=== PATIENT | male | born 1975 | race Caucasian/White ===

== ENCOUNTER 2018-11-20 04:18 | Observation (INO) | payer OTHER, SELFPAY ==
[2018-11-20] VITALS (13 sets, daily range): BP systolic 117–159; BP diastolic 66–93; PULSE 51–74; RESP 15–18; TEMP 36.1–37; O2SAT 95–98; BMI 284.2; BMI 28.3; BMI 28.2
--- NOTE | 2018-11-20 04:27 | CT_ITS ---
STUDY: CT ABDOMEN AND PELVIS WITHOUT CONTRAST REASON FOR EXAM: Male, 43 years old. Diffuse abdominal pain, constipation RADIATION DOSAGE (If Supplied By Facility): CTDIvol = ( 10.31 ) mGy, DLP = ( 525.35 ) mGycm TECHNIQUE: Transaxial images were obtained from the dome of the diaphragm to the symphysis pubis without oral contrast, and without intravenous contrast. Sagittal and coronal images were reconstructed. Individualized dose optimization techniques were used for this CT. COMPARISON: None. FINDINGS: The visualized lung bases are unremarkable. The visualized portions of the heart are within normal limits. Normal liver. Normal gallbladder and extrahepatic biliary system. There is a benign calcified granuloma of the spleen. Normal pancreas. Normal bilateral adrenal glands. Normal right kidney. Normal left kidney. Normal visualized stomach. Normal small intestine. There are multiple colonic diverticula consistent with diverticulosis. There is non-visualization of the appendix. Normal abdominal aorta. Normal inferior vena cava. Normal retroperitoneum. Normal urinary bladder. Vasectomy. Normal abdominal wall. Normal osseous structures. CT/Abdomen/Pelvis without Cont IMPRESSION: No evidence of acute intestinal pathology or acute obstructive uropathy. Electronically Signed: Lukas Perdomo MD at 5:57 EDT Tel , Service support ,
[2018-11-20] MEDS: Morphine 4 MG/ML Syringe IV ×2 (04:33→06:59)
[2018-11-20] MEDS: Ondansetron 4 MG/2 ML Vial IV (04:34)
[2018-11-20] MEDS: 0.9% Normal Saline 1,000 ML 125 ML IV (04:34)
[2018-11-20 04:36] LABS: Absolute Lymphocyte Count 2.37 X10^3/ul (0.83-4.51); Absolute Neutrophil Count 10.8 X10^3/uL (2.0-7.7); Basophil# 0.02 X10^3/uL; Basophil% 0.1 % (0-1); Eosinophils% 0.7 % (0-5); Hematocrit 43.8 % (40-54); Hemoglobin 15.2 g/dl (13.0-16.5); Lymphocyte # 2.37 X10^3/ul (4.0); Mean Corp Hgb Conc 34.7 g/gl (32-36); Mean Corpuscular Hgb 31.3 pg (27.0-32.0); Mean Corpuscular Volume 90.1 fL (80-94); Mean Platelet Vol. 9.3 fl (6.2-12.0); Monocyte# 1.49 X10^3/uL; Neutrophil # 10.84 X10^3/uL (2.7-7.7); Platelet Count 262 K/mm3 (150-450); RBC Distribution Width CV 12.7 % (11.6-14.6); RBC Distribution Width SD 41.1 fl (35.1-43.9); Red Blood Count 4.86 M/mm3 (4.6-6.2); White Blood Count 14.9 K/mm3 (4.4-11.0)
[2018-11-20 04:38] LABS: POSITIVE COUNT NO; POSITIVE DIFFERENTIAL NO; POSITIVE MORPHOLOGY NO
[2018-11-20 04:45] LABS: AST(SGOT) 21 U/L (15-37); Alanine Aminotransfer ALT/SGPT 29 U/L (16-61); Albumin, Serum 4.2 g/dL (3.2-5.0); Alkaline Phosphatase 69 U/L (45-117); Anion Gap 12 (5-15); BUN 13 mg/dL (7-18); BUN/Creat Ratio 10.6 RATIO (10-20); Calcium,Total 9.4 mg/dL (8.5-10.1); Chloride 105 mmol/L (98-107); Creatinine, Serum 1.23 mg/dL (0.70-1.30); EST Glomerular Filtration Rate 68 mL/min (>60); Est Glom Filt Rate - Afr Amer 82 mL/min (>60); Estimated Creatinine Clearance 78.31 ml/min; Globulin 4.3 g/dL (2.2-4.2); Glucose 120 mg/dL (74-106); Potassium 3.7 mmol/L (3.5-5.1); Protein, Total 8.5 g/dL (6.4-8.2); Sodium Level 142 mmol/L (136-145)
[2018-11-20 05:06] LABS: Lactic Acid 1.2 mmol/L (0.4-2.0)
[2018-11-20 05:17] LABS: Bacteria 0 SEEN /hpf (None Seen); Mucous, Urine 0 SEEN /hpf (<or=2+); Squamous Epithelial Cells - UA 0 SEEN /hpf (0-5)
[2018-11-20 05:20] LABS: Color, Urine Yellow (Yellow); Glucose, Dipstick Normal (Normal); Ketone-Dipstick 15 mg/dl (Negative); Leukocyte Esterase-Dipstick Negative /ul (Negative); Nitrite-Dipstick Negative (Negative); Occult Blood-Urine 25 /ul (Negative); Protein-Dipstick 15 mg/dl (Negative); Urine Bilirubin Dipstick Negative (Negative); Urine Clarity Sl. Cloudy (Clear); Urine Urobilinogen Normal (Normal)
[2018-11-20 05:43] LABS: Red Blood Cells-Urine 5-10 SEEN /hpf (0-5); White Blood Cells 0-5 SEEN /hpf (0-5)
--- NOTE | 2018-11-20 06:04 | CT_ITS ---
STUDY: CT ABDOMEN AND PELVIS WITH CONTRAST REASON FOR EXAM: Male, 43 years old. Pain and no bowel movement for 5 days RADIATION DOSAGE (If Supplied By Facility): CTDIvol = ( 13.22 ) mGy, DLP = ( 679.87 ) mGycm TECHNIQUE: Transaxial images were obtained from the dome of the diaphragm to the symphysis pubis without oral contrast. Isovue 300 100 IV/Oral was administered. Sagittal and coronal images were reconstructed. Individualized dose optimization techniques were used for this CT. COMPARISON: November 20, 2018 4:[address] scan abdomen and pelvis FINDINGS: There is minimal lower lobe atelectasis. The visualized portions of the heart are within normal limits. Normal liver. Normal gallbladder and extrahepatic biliary system. Normal spleen. Normal pancreas. Normal bilateral adrenal glands. Normal right kidney. Normal left kidney. There is a small hiatal hernia. Contrast is present within the mid small bowel at the time of this study. There are persistent fluid filled distended loops of proximal mid and distal colon to the level of the distal descending colon. There are multiple diverticula present without diverticulitis. The bowel within the distal descending colon and sigmoid is redundant and tortuous. There is a minimal amount of stool within the distal descending colon and rectum similar to the earlier studies today. There is non-visualization of the appendix. Normal abdominal aorta. Normal inferior vena cava. There are a few nonspecific subcentimeter retroperitoneal lymph nodes. The bladder is distended.There are prostatic calcifications. Patient had a vasectomy There is a trace fatty umbilical hernia. There is spondylosis in the lower thoracic spine. CT/Abdomen/Pelvis WITH Contrast IMPRESSION: There is a distended fluid filled appearance of most of the colon. There is a decompressed redundant appearing partially stool-filled distal colon. There are a few diverticula present without evidence of diverticulitis. Could consideration for KUB serial delayed images as the contrast does not reach the large bowel at the time of the study. This may be helpful to further clarify the decompressed distal colon. The differential for the air-fluid levels within the colon, include the possibility of laxative use, in combination with possible poor motility or potentially a distal nonvisualized narrowing or stricture. Air-fluid levels in the colon can be demonstrated in gastroenteritis in patients that will develop diarrhea. Hepatic steatosis. Electronically Signed: Migdalia Pitt MD at 8:52 EDT Tel , Service support ,
--- NOTE | 2018-11-20 06:26 | ED.VISSUMM ---
- ER Visit Summary Date of Service: 11/20/18 Chief Complaint: [Abdominal pain] History of Present Illness: The patient is a 43 M [presents the emergency department complaint of lower abdominal pain is been going on for about 2 days. Patient initially started with some discomfort in his low back which eventually resolved. Patient also has not had a bowel movement in 4 days. Patient denies any fever. He denies any nausea or vomiting. He denies any blood in his stool or black tarry stools. Patient has no medical history. He denies urinary symptoms.] Physical Examination: [HEENT-PERRLA, EOMI. Cranial nerves II through XII grossly intact. TMs clear. Mucous membranes moist. No adenopathy. Cardiovascular-regular rate and rhythm without murmur or ectopy Lungs-clear to auscultation, chest wall stable without crepitus or subcu emphysema Abdomen-normoactive bowel sounds, soft. Patient has tenderness palpation over right lower quadrant with some guarding. There is no rebound, rigidity, or perineal signs. Extremities-intact ?4, normal range of motion, normal pulses, atraumatic] Test Results: [CBC with differential showed an elevated white count of 14.9, hemoglobin 15, hematocrit 44.8, platelets 262. Chemistries unremarkable. LFTs were normal. Lactate is normal 1.2. CT scan of the abdomen pelvis without contrast initially was obtained which did not show anything acute however there was nonvisualization of the appendix.] Emergency Department Course and Treatment: [Patient was medicated with morphine and Zofran. Patient continues to have tenderness over the right lower quadrant with guarding. Given the elevated white count and continued tenderness over the right lower quadrant and nonvisualization of the appendix it was decided to obtain a CT scan of the abdomen pelvis with IV contrast and p.o. contrast.] Treatment Plan: [Care of patient turned over the morning physician awaiting CT results and final disposition] Disposition: [Pending] Impression: Abdominal pain Constipation [] This note was generated with [employer] dictation software. It may contain incorrect words, spelling, and punctuation that were not noted in review of the chart prior to signing ED Disposition - Plan for ED Patient: Referrals: Joseph Cabrales III, MD [Primary Care Provider] -
--- NOTE | 2018-11-20 10:12 | PCM.HP.BLA ---
History and Physical Date of Admission: 11/20/18 Chief Complaint: abdominal pain History of Present Illness: 43 y/o otherwise healthy WM presents with abdominal pain in the right lower quadrant. Initially began on Thursday morning with low back pain, but then radiated anteriorly to the right lower quadrant. On , felt constipated, last had normal bowel movement on Thursday. Tried many over the counter remedies - prune juice, dulcolax, etc. with no improvement. Pain waxes and wanes and notes that it is spasmodic, patient is sometimes doubled over in pain. Presented early this morning to the ED. Thought initially to be kidney stone - non contrast CT scan revealed no abnormalities. Obtained contrasted CT scan - no acute process noted. Diverticula noted, redundant colon noted, minimal stool in right colon, no appendix seen WBC 14.9K with left shift of differential Has history of constipation, but never had this type of abdominal pain with constipation. Past Medical History: denies major medical illnesses Past Surgical History: right shoulder surgery vasectomy Past Injuries: denies head injuries, denies history of fractures Medications: flonase occasional fish oil mvi Allergies: Has no known drug allergies Social history: TOB use denies lives with family Review of Systems: General - denies fevers Cardiovascular denies chest pain, denies history of heart attack Pulmonary denies shortness of breath, denies coughing up blood Gastrointestinal as per HPI, denies blood in stools, has constipation Neurological denies numbness/weakness of extremities, denies seizures, denies history of stroke Genitourinary denies burning with urination, denies blood in urine Hematological denies spontaneous/prolonged bleeding Skin denies open non healing wounds Musculoskeletal denies history of fractures, had right shoulder surgery Endocrine denies diabetes Psychological denies hallucinations Physical examination: Vital signs Temp 97.5F HR 65 BP 159/93 RR 18 General WD/WN WM in no apparent distress, alert and oriented, not septic appearing HEENT Normocephalic. EOM intact with sclera clear and no icterus noted. Neck is supple with no jugular venous distention noted. Trachea is midline. Lungs no labored breathing noted, such as retractions. No cough heard. Heart regular. Abdomen soft but tender in the right lower quadrant, no rebound or Rovsing's sign. patient states that pain waxes and wanes, had been 10 out of 10 on scale of 1-10 with 10 being the worst pain Extremities no pitting edema noted. Genitourinary/Rectal deferred Skin normal skin integrity. Neurological no focal deficits noted Psychological normal affect, patient is calm and appropriate Impression: right lower quadrant abdominal pain leukocytosis Discussion/Plan: I have discussed the above with the patient and his who is present with him The patient clinically has signs/symptoms of acute appendicitis - with right lower quadrant point tenderness at McBurney's point and leukocytosis. I have told them that CT scan results are not perfect, so despite having no abnormalities seen on CT scan (albeit the appendix is not see) - the patient may still have appendicitis. I have offered laparscopic appendectomy. I have explained the procedure to the patient. I have counseled the patient as to the risks of the procedure, including but not limited to: infection, bleeding, injury to any blood vessels/nerves, scar tissue, injury to any intrabdominal organs, injury to kidney/ureters, injury to bowel/bladder, intraabdominal abscess/bleeding, hernias at incisional sites, wound infections, possible open procedure, complications of anesthesia, postoperative pneumonia/cardiac problems/blood clots etc. the patient understands. He wishes to proceed. I have answered all questions to the patient?s satisfaction and the patient has no further questions.
--- NOTE | 2018-11-20 10:13 | EKG12_ITS ---
Test Reason : PRE OP Blood Pressure : / mmHG Vent. Rate : 052 BPM Atrial Rate : 052 BPM P-R Int : 206 ms QRS Dur : 108 ms QT Int : 434 ms P-R-T Axes : 055 012 012 degrees QTc Int : 403 ms Sinus bradycardia Otherwise normal ECG Confirmed by SANDRA SALMON, MOSES ([id number]), sports editor JILLIAN LOPEZ ([id number]) on 11/22/2018 11:22:55 AM Referred By: ALONDRA Confirmed By:MOSES FLORES MD
--- NOTE | 2018-11-20 11:00 | APP_PTH ---
PATIENT: CAYDEN HUI Jr. LOC: MS3 U#:[id number] AGE/SX: 43/M [place] [facility] [place]: Dr. Gloria Smith MD : 1975 BED: 1 DIS: 11/21/2018 SPEC #: [id number] RECD: 11/22/18 07:25 STATUS: BUSHRA RE #: [id number] WILLIAM: 11/20/18 11:[address]: Gloria Smith DEPT: SURGICAL PATHOLOGY RECD BY: Ronald Reese ENTERED: 11/22/18 12:56 SP TYPE: APPENDIX OTHR DR: Dr. Joseph Cabrales III, MD Tissues: Appendix, NOS Procedures: Surgery Specimen Level III HEADER OPERATION: Laparoscopic appendectomy, lysis of adhesions PRE-OP DIAGNOSIS: Acute appendicitis; elevated WBC; right lower quadrant pain TISSUE SUBMITTED: Appendix MICROSCOPIC DIAGNOSIS Appendix, appendectomy: Fibrofatty obliteration of lumen. No evidence of appendicitis. AM:nilson 11/23/18 MICROSCOPIC DESCRIPTION Slides are reviewed. GROSS DESCRIPTION Received is one container labeled with the patient's name and designated appendix. The specimen consists of an appendix measuring 4.5 cm in length and 0.4 cm in average diameter. The attached periappendiceal adipose tissue measures up to 1.5 cm in width. The serosa is unremarkable. No obvious perforation is identified. The lumen is pinpoint. Sections of the periappendiceal adipose tissue do not reveal any obviously enlarged lymph node. The entire appendix is submitted in one cassette. / SJ:nilson 11/22/18 TC:5 CPT: 65748
[2018-11-20] MEDS: Bupiv/Epi 0.25% 30 ML Vial (11:21)
--- NOTE | 2018-11-20 12:13 | OP.PCM_ITS ---
Report of Operation Date of Procedure: 11/20/18 Pre-Operative Diagnosis: right lower quadrant abdominal pain, leukocytosis Post-Operative Diagnosis: right lower quadrant abdominal pain, elevated WBC, adhesive band Surgery/Procedure Performed:: laparoscopic appendectomy, lysis of adhesions Description of Surgical Findings:: adhesive band across mid right colon that appeared to kink the colon, small appendix Type of Anesthesia:: General Anesthesiologist: Shannon Dow Specimen's removed: appendix Estimated Blood Loss (mL): < 10 ml Fluids Replaced: 1000 ml RL Description of Procedure: After informed consent was obtained, the patient was brought into the operating room. Appropriate time out protocol was followed. He was then placed in the supine position on the operating table. The patient was then placed under general anesthesia. The patient?s abdomen was then prepped with a sterile surgical skin preparation and sterile surgical drapes were placed. The cynthia- umbilical skin fold was grasped with penetrating clamps and the skin and subcutaneous tissues were infiltrated with 0.25% marcaine with epinephrine. A skin incision was then made. A Veress needle was then inserted into the intraabdominal cavity and checked to be in the proper position with a normal saline drop test. A CO2 pneumoperitoneum was then created. Once this was achieved, the Veress needle was removed and a 5 mm trocar was placed in its stead. A 5 mm laparoscope was then inserted into the trocar. There was no evidence of injury to any internal organs from placement of the Veress needle or the trocar. Under direct visualization, a 12mm suprapubic trocar and a 5mm left lower quadrant trocar was then placed into the intraabdominal cavity. The skin and subcutaneous tissues at these sites were first infiltrated with 0.25% marcaine with epinephrine. Careful examination of the intraabdominal contents was then done. There was an adhesive band of omental tissue that appeared to be kinking the mid right colon, as the cecum and proximal colon to this kink was dilated. Thus this adhesion was taken down by using the Harmonic scalpel. Attention was then directed to the right lower quadrant. The appendix was visualized. It was very small in caliber. The mesentery of the appendix was taken down by cauterizing the tissue from the free edge to the base of the appendix with the harmonic scalpel. Once the base of the appendix was freed of surrounding tissues, then the linear gastrointestinal stapling device was brought into the abdominal cavity via the 12mm port and placed across the base of the appendix. The stapling device was fired, thus stapling across the base of the appendix and transecting it simultaneously. The appendix was then placed in an Endobag and this was brought out through the suprapubic trocar. The appendix was then forwarded to Pathology for analysis. The appendiceal stump was carefully examined. There was no evidence of any active bleeding or fecal leakage. The surrounding tissues were also examined and there was no evidence of any active bleeding or fecal/bile leakage. The intraabdominal cavity was examined and there was no evidence of further inflammation or tissue abnormality. There was no evidence of any peritoneal fluid. The CO2 pneumoperitoneum was released and all trocars were removed intact. The suprapubic fascia was reapproximated with a figure-of-8 vicryl suture. All skin incisions were reapproximated with monocryl suture. Cavilon and steristrips were applied to reinforce skin closure and proper sterile dressings were placed. The patient was then extubated and brought to the Recovery Room in stable condition. - Complications none noted - Admit VTE Documentation VTE Present on Admission: Yes VTE Mechan Device Prophylaxis: SCD's
[2018-11-20] MEDS: Ibuprofen 600 MG Tablet PO ×2 (17:22→23:10)
[2018-11-20] MEDS: Lactated Ringers 1,000 ML 125 ML IV (20:33)
[2018-11-20] MEDS: Bisacodyl 5 MG Tablet PO (21:44)
[2018-11-21 02:20] VITALS: BP 143/73; PULSE 74; RESP 18; TEMP 36.6; O2SAT 97
[2018-11-21] MEDS: Lactated Ringers 1,000 ML 125 ML IV (04:15)
[2018-11-21 09:10] VITALS: BP 135/91; PULSE 57; RESP 16; TEMP 36.8; O2SAT 98
[2018-11-21] MEDS: Bisacodyl 5 MG Tablet PO (10:12)
[2018-11-21] MEDS: Ibuprofen 600 MG Tablet PO (10:14)
--- NOTE | 2018-11-21 10:37 | PCM.PN.SRG ---
Subjective: patient wanted to stay overnight because he hadn't had a bowel movement and feels constipated does feel better after surgery - Physical Exam General: Alert, Oriented x3 Oral: Moist Mucosa Neck: Supple Lungs: Clear to auscultation Abdomen: Soft, - - dressings intact, minimal seepage noted Vital Signs Temp Pulse Resp BP Pulse Ox 98.2 F 57 L 16 135/91 H 98 11/21/18 09:10 11/21/18 09:10 11/21/18 09:10 11/21/18 09:10 11/21/18 09:10 Oxygen Delivery Method Room Air Weight: 89.3 kg Body Mass Index (BMI) 28.2 Intake and Output for Last 24 Hours 11/19/18 11/20/18 11/21/18 23:59 23:59 23:59 Intake Total 3274 / 3274 908 / 908 Output Total 600 / 600 725 / 725 Balance 2674 / 2674 183 / 183 Medical Necessity - Tobacco Use Smoking Status: Never smoker Assessment/Plan status post laparoscopic appendectomy Plan: d/c to home
--- NOTE | 2018-11-21 10:38 | PCM.DC.APPY ---
Discharge Diet: No Restrictions - avoid carbonated beverages for a couple of days, drink plenty of fluids Discharge Activity: Return to Normal Activity, May not drive while taking narcotic pain medications. Lifting Restrictions: no lifting/pulling/pushing greater than 20 pounds for two weeks Call your doctor if your incision/area has: Continuous Slow Oozing, Foul Smelling Discharge Call your doctor if you observe: Fever of 101 or Higher Additional Dressing/Incision Instructions:: Leave dressings in place. May get wet in shower. Do not soak - no tub baths/swimming Medications to take at Discharge Amoxicillin [Amoxil] 500 mg PO BID 11/20/18 Hydrocodone/Acetaminophen [Orleans 5-325 Tablet] 1 ea PO Q8 PRN 5 Days #15 tab 11/20/18 Multivitamin with Minerals [Multiple Vitamin] 1 each PO DAILY 11/20/18 [id number]/Sod Sulf,Bicarb,Cl/KCl [Peg 3350 Electrolyte Soln] 4,000 ml PO PRN PRN #1 soln.recon 11/21/18 Allergies/Adverse Reactions: Allergies No Known Allergies Allergy (Verified 11/20/18 04:23) The following prescriptions were given: Hydrocodone/Acetaminophen [Orleans 5-325 Tablet] 1 ea PO Q8 PRN 5 Days #15 tab PRN Reason: Mod-Severe Pain (4-10/10) [id number]/Sod Sulf,Bicarb,Cl/KCl [Peg 3350 Electrolyte Soln] 4,000 ml PO PRN PRN #1 soln.recon PRN Reason: Constipation Primary Care Physician: Joseph Cabrales III, MD [Primary Care Provider] - Test Results: Test results from this visit will be discussed in further detail at your follow-up appointment, if applicable. Please Follow Up With: Gloria Smith MD - When: to be seen on Nov 26, please call for time, thank you
== END 2018-11-21 12:05 | disposition home or self-care (01) ==
LOC: ED 07:18 → SDC 10:20 → AC 10:21 → SDC 13:11 → MS3 20:15
PROVIDERS: Emergency Medicine; Admitting Provider Surgery; Emergency Provider Emergency Medicine; Family Provider Family Medicine; PCP Family Medicine; Visit Provider Surgery
PROC: 0DTJ4ZZ Resection of Appendix, Percutaneous Endoscopic Approach (ICD-10-PCS; CPT 44970; principal; 2018-11-20 11:00)
DX: R10.31 Right lower quadrant pain (principal); D72.829 Elevated white blood cell count, unspecified; K66.0 Peritoneal adhesions (postprocedural) (postinfection); K59.00 Constipation, unspecified; R00.1 Bradycardia, unspecified
CPT/HCPCS: 00840; 44970; 74176; 74177; 80053; 81001; 83605; 85025; 88304; 93005; 96361; 96374; 96375; 96376; 99218; 99285; J7120; Q9967; A4216; G0378; J2405

== ENCOUNTER → 2019-03-02 | Outpatient (CLI) | payer OTHER, SELFPAY ==
[2018-11-20 13:18] VITALS: BMI 28.2
--- NOTE | 2019-03-02 07:49 | CT_ITS ---
HISTORY: HEARING LOSS EXAMINATION: CT IAC/PF/Orbit/Sella W/O Contrast TECHNIQUE:Routine noncontrast CT protocol was performed of the internal auditory canals and temporal bones. 2-D reformats were performed by the technologist. A radiation dose optimization technique was used for this scan. IV Contrast dosage and agent: None. COMPARISON: None FINDINGS: RIGHT SIDE: SUPERFICIAL SOFT TISSUES: Trace edema within the subcutaneous fat of the face and about the years MASTOID AIR CELLS: Well aerated, unremarkable. EXTERNAL AUDITORY CANALS AND MIDDLE EAR CAVITIES: Well aerated. INTERNAL AUDITORY CANALS: Unremarkable bilateral internal auditory canals. No intracanalicular schwannoma. INNER EAR: Unremarkable cochlea, vestibule and semicircular canals. TEMPORAL BONES: No fractures. LEFT SIDE: SUPERFICIAL SOFT TISSUES: Unremarkable. MASTOID AIR CELLS: Well aerated, unremarkable. EXTERNAL AUDITORY CANALS AND MIDDLE EAR CAVITIES: Well aerated. INTERNAL AUDITORY CANALS: Unremarkable bilateral internal auditory canals. No intracanalicular schwannoma. INNER EAR: Unremarkable cochlea, vestibule and semicircular canals. TEMPORAL BONES: No fractures. VISUALIZED BRAIN AND POSTERIOR FOSSA: Cerebello-pontine angles are unremarkable. CT/Orb Sella Post Fossa Ear w/o IMPRESSION: Negative CT of the internal auditory canals and temporal bones. Individualized dose optimization techniques were used for this CT. at 0033 Reported and signed by: Nikunj Lance MD Electronically Signed: Nikunj Lance MD at 0:32 EDT Tel , Service support ,
== END | disposition home or self-care (01) ==
PROVIDERS: Family Provider Family Medicine; PCP Family Medicine; Referring Provider Otolaryngology Otolaryngology/Facial Plastic Surgery; Visit Provider Otolaryngology Otolaryngology/Facial Plastic Surgery
DX: H90.2 Conductive hearing loss, unspecified (principal)
CPT/HCPCS: 70480

== ENCOUNTER → 2023-10-09 | Outpatient (CLI) | payer OTHER, SELFPAY ==
--- NOTE | 2023-10-09 12:09 | CT_ITS ---
STUDY: CT RIGHT SHOULDER REASON FOR EXAM: Male, 48 years old. IMPINGEMENT SYNDROME RIGHT SHOULDER RADIATION DOSAGE (If Supplied By Facility): CTDIvol = ( 26.70 ) mGy, DLP = ( 645.47 ) mGycm TECHNIQUE: The patient was scanned in a multi detector CT scanner. High resolution transaxial imaging was performed with intra-articular administration of intravenous contrast material. Sagittal and coronal images were reconstructed. Individualized dose optimization techniques were used for this CT. COMPARISON: None. FINDINGS: The patient is status post right shoulder hemiarthroplasty with replacement of the humeral head. Contrast is seen within the joint. There is evidence of a impingement of the supraspinatus muscle tendon. Normal coracoid process. Normal visualized lateral clavicle. Normal acromioclavicular articulation. There is a Type II morphology (curved), with a neutral orientation. Normal visualized muscles and soft tissue structures. CT/Extremity Upper without Contra IMPRESSION: Findings suggestive of mild degree of impingement of the supraspinatus muscle tendon. Electronically Signed: López Falcon MD at 14:01 EST ,
--- NOTE | 2023-10-09 12:45 | RAD_ITS ---
STUDY: X-RAY - RIGHT SHOULDER REASON FOR EXAM: Male, 48 years old. POST ARTHROGRAM TECHNIQUE: 2 view(s) of the shoulder. COMPARISON: None. FINDINGS: The patient is status post hemiarthroplasty of the humeral head. Contrast is seen within the joint space. RAD/Shoulder min 2 Views IMPRESSION: Contrast is seen within the joint space for CT arthrogram study. Electronically Signed: López Falcon MD at 10:24 EST ,
[2023-10-09] MEDS: Lidocaine 2% (5ml sdv) 5 ML VIAL.MPF INFILT (12:50)
--- NOTE | 2023-10-09 13:13 | PCM.OP.PRO ---
Procedure Report Date of Procedure: 10/09/23 Assessment & Plan Assessment/Plan (1) Impingement syndrome of right shoulder: PLAN: PROCEDURE: Arthrogram-right shoulder ORDERING PROVIDER: Dr. Novak INDICATION: Male, 48 years old. Right shoulder pain. PROVIDER: Sarah Wells APRN-[employer] CONSENT: The procedure as well as the benefits and possible complications including bleeding and infection were explained to the patient. Informed consent was obtained. TECHNIQUE: The patient was positioned supine. The overlying skin was prepped and draped in the usual sterile fashion. Following injection of local anesthetic with 2% lidocaine and under direct fluoroscopic guidance, a 22-gauge spinal needle was placed into the right glenohumeral space. 2 cc of Isovue 300 was injected for confirmation. Following this, 10 cc of arthrogram contrast (gadoterate, iopamidol, lidocaine, and epinephrine), compounded by pharmacy, was injected. All elements of maximal sterile barrier technique followed. Patient tolerated procedure well. IMPRESSION: Successful fluoroscopic guided right shoulder arthrogram. Procedures Radiology Radiology Xray Procedures: [id number] Arthrogram Shoulder
== END | disposition home or self-care (01) ==
PROVIDERS: PCP Registered Nurse
DX: M75.41 Impingement syndrome of right shoulder (principal)
CPT/HCPCS: 20610; 23350; 73030; 73040; 73200; Q9967